=== PATIENT | female | born 2000 | race Caucasian/White ===

== ENCOUNTER 2023-06-21 16:12 | Emergency (ER) | payer BC, SELFPAY ==
[2023-06-21 16:15] VITALS: BP 125/73; BMI 20.4
--- NOTE | 2023-06-21 17:23 | ED.GENMED ---
History of Present Illness
General
Chief Complaint: Anal/Rectal Problem
Source: patient
Time Seen by Provider: 06/21/23 17:13
Travel History
Have you had any contact with someone who has COVID-19?: No
Do you have any symptoms of coronavirus? Fever > 100 degrees, chills, cough, shortness of breath, sore throat, loss of taste or smell, muscle aches, or headache?: No
History of Present Illness
History of Present Illness:
22-year-old female presents with painful bump to the tailbone area starting 3 days ago. She states is actually better today than what it has been. She denies any drainage. No measurable fever. She had an episode of vomiting today and states she
has not had the urge to urinate today at all. No abdominal pain. No other complaints at this time
Past History
Past History
ED Past Medical History: None
ED Past Surgical History: Tonsilectomy
Phy Exam
Physical Exam
Physical Exam:
General: Well-appearing female no acute respiratory distress
HEENT: Normocephalic atraumatic
Heart: Regular rate and rhythm no murmurs
Lungs: Clear to auscultation bilaterally no wheezing
Skin: This was performed with female inventory planner in room. There is a less than pea-sized area of subtle erythema noted to the right of midline over the sacrum this is slightly tender. No fluctuance. No drainage.
Course
Orders/Labs/Results
Orders:
Orders
06/21/23 17:25
Bladder Scan- Treatment ONCE
06/21/23 17:53
Urinalysis Reflex To Culture Urgent
Date Specimen was Collected: 06/21/23
Time Specimen was Collected: 17:50
Urine Microscopic Reflex Cult Urgent
Abnormal Lab Results
06/21/23
17:53
Leukocyte Esterase Rfl Trace A
(Negative)
Vital Signs
Initial and Last Documented VS:
Initial Vital Signs
Temp Pulse Resp BP Pulse Ox
98.2 F 63 16 125/73 99
06/21/23 16:15 06/21/23 16:15 06/21/23 16:15 06/21/23 16:15 06/21/23 16:15
Last Documented Vital Signs
Temp Pulse Resp BP Pulse Ox
98.2 F 63 16 125/73 99
06/21/23 16:15 06/21/23 16:15 06/21/23 16:15 06/21/23 16:15 06/21/23 16:15
MDM/Problems Addressed
Differential Diagnosis Includes:
Patient presented with painful bump to the tailbone area however clinically there is minimal evidence of such. I suspect she potentially had the start of a pilonidal cyst that resolved. There is nothing to drain at this point. She has not been
able to urinate since yesterday. Will check urinalysis and postvoid residual.
*Critical Care Note
Total Time (30-74mins, 75-104mins- exclusive of procedures): Not Applicable
Update Note
Update Note:
Urinalysis was obtained. This was negative for infection. There is minimal postvoid residual. Do not suspect acute urinary retention. At this point there is nothing to drain in regards to a pilonidal cyst. There is a small area less than 2 mm
that is slightly erythematous but not fluctuant. Will cover with doxycycline
ED Attending Note
-
Portions of this chart may have been created with voice recognition software.� Occasional wrong word or��sound alike� substitutions may have occurred due to the inherent limitations of voice recognition software.
Discharge Plan
Departure
Patient Disposition: Home (Routine Discharge)
Date of Disposition: 06/21/23
Time of Disposition: 18:46
Patient with high blood pressure during this ER visit?: No
Discharge Problem:
Cyst
Instructions: Pilonidal cyst
Prescriptions:
New
doxycycline hyclate 100 mg tablet
100 mg PO BID Qty: 14 0RF
No Action
norethindrone-e.estradiol-iron [Loestrin 24 Fe] 1 EACH tablet
1 tab PO DAILY
Referrals:
Caitlin Ward DO [Family Provider] -
Activity Restrictions/Additional Instructions:
Use warm compresses to the area. Take antibiotics as directed. Return if worse otherwise follow-up with family doctor
Interventions
Interventions:
*Risk Screen - Suicide Last Done: 06/21/23 16:15
*Neglect/Abuse Screening Last Done: 06/21/23 16:15
*ED COVID-19 Vaccine History Last Done: 06/21/23 16:15
[2023-06-21 18:14] LABS: Urine Albumin Negative (Neg - Trace); Urine Bilirubin Negative (Negative); Urine Character Clear (Clear); Urine Color Yellow; Urine Glucose Negative (Negative); Urine Ketone Negative (Negative); Urine Leukocyte Trace (Negative); Urine Nitrite Negative (Negative); Urine Occult Blood Negative (Negative); Urine Specific Gravity 1.015 (<1.030); Urine Urobilinogen Negative (Neg - 1+)
[2023-06-21 18:48] LABS: Urine Bacteria Moderate (Negative); Urine Red Blood Cell 0-2 /HPF (0-2); Urine Squamous Cell 26-30 /LPF (Few); Urine White Cell 21-25 /HPF (0-5)
== END 2023-06-21 19:58 | disposition home or self-care (01) ==
LOC: EMR 16:12
PROVIDERS: Physician Assistant; EMERGENCY PHYSICIAN Student in an Organized Health Care Education/Training Program; FAMILY PHYSICIAN Family Medicine Geriatric Medicine
DX: L05.91 Pilonidal cyst without abscess (principal); R11.10 Vomiting, unspecified; Z88.1 Allergy status to other antibiotic agents
CPT/HCPCS: 99283; 81003; 81015; 87077; 87086; 87186